=== PATIENT | male | born 1985 | race Two or more races ===

== ENCOUNTER 2017-03-02 18:22 | Emergency (ER) | payer MEDICAID ==
[~2017-03-02] VITALS: Ht 193 cm; Wt 99.8 kg
[~2017-03-02 18:22] MED LIST: HALO5AMP2 IJ
[2017-03-02 18:32] VITALS: BP 150/98
== END 2017-03-02 19:35 | disposition home or self-care (01) ==
LOC: ER 18:26
DX: T45.0X5A Adverse effect of antiallergic and antiemetic drugs, initial encounter (principal); F32.9 Major depressive disorder, single episode, unspecified; F41.9 Anxiety disorder, unspecified; Y92.89 Other specified places as the place of occurrence of the external cause
CPT/HCPCS: A4606; Z7502; Z7610